=== PATIENT | male | born 1950 | race Caucasian/White ===

== ENCOUNTER → 2016-10-20 | Day surgery (SDC) | payer MEDICARE, BC ==
[~2016-10-20] MED LIST: Lactated Ringers 1,000 ML IV SCH; Propofol 200 MG/20 ML SDV IV ONE
[2016-10-20 08:14] VITALS: BP 127/86
--- NOTE | 2016-10-20 13:58 | OR ---
DATE OF OPERATION: 10/20/2016 PREOPERATIVE DIAGNOSIS: FOLLOWUP POLYPS. POSTOPERATIVE DIAGNOSIS: FOLLOWUP POLYPS. SURGEON: Felix Frank MD PROCEDURE: FULL-LENGTH COLONOSCOPY. ANESTHESIA: BILLET SHEARER due to hypertensive heart disease on diabetes and leukopenia. COMPLICATIONS: None. SPECIMEN: None. FINDINGS: Normal full-length colonoscopy. RECOMMENDATIONS: Routine colonoscopy in 10 years. INDICATIONS: The patient had a prior colonoscopy five years ago with polyps removed. He is due for a routine followup at this time. DESCRIPTION OF PROCEDURE: The patient was prepped and draped, placed in the left lateral decubitus position. A lubricated Olympus colonoscope was inserted and easily advanced to the cecum. Direct visualization of the ileocecal valve and appendiceal orifice was accomplished. The bowel prep was adequate. Upon withdrawal of the scope, throughout the length of the colon, I found no signs of any polyp recurrence, mass, ulceration or bleeding sites. No vascular abnormalities or signs of colitis. There was no significant diverticular disease. The rectal vault appeared benign. Retroflexion of the scope in the rectum showed no anal lesions. Air was then suctioned. Scope was removed without complication. TIM/MAYNOR /[id number]
== END ==
LOC: CC.SDS 06:18
PROVIDERS: ATTEND Family Medicine
DX: Z12.11 Encounter for screening for malignant neoplasm of colon (principal); Z86.010 Personal history of colon polyps; I10 Essential (primary) hypertension; Z79.899 Other long term (current) drug therapy
CPT/HCPCS: 71020; 82962; G0105; J2704; J7120; 00810